=== PATIENT | female | born 2000 | race African-American/Black ===

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

== ENCOUNTER 2019-01-10 09:16 | Emergency (ER) | payer SELFPAY ==
[~2019-01-10] VITALS: Ht 157.5 cm; Wt 58.5 kg
[~2019-01-10 09:16] MED LIST: AMOX875T PO; IBUP-1060 PO
[2019-01-10 10:11] LABS: BILIRUBIN,URINE NEGATIVE (NEG); CLARITY,URINE CLOUDY; COLOR,URINE RED; NITRITE,URINE NEGATIVE (NEG); PH,URINE 5.5; PROTEIN,URINE 30 mg/dL (NEG-TRACE); UROBILINOGEN,URINE 0.2 mg/dL (0.2 mg/dL)
[2019-01-10 10:28] LABS: BACTERIA,URINE FEW /HPF (0-FEW); RBC,URINE TNTC /HPF (0-2); SQUAMOUS EPITHELIAL CELL,UR MOD /LPF
[2019-01-10] MEDS ORDERED: LIDOCAINE 2% TOPICAL JELLY 5GM TUBE. TP ONE (10:45)
[2019-01-10] MEDS ORDERED: LIDOCAINE 2% JELLY 6ML IN APPLICATOR. TP ONE (11:15)
[2019-01-10 11:30] VITALS: BP 114/69
--- NOTE | 2019-01-10 11:43 | PHYS DOC ---
Past Medical History Past Medical History: No Pertinent History Past Surgical History: No Surgical History Alcohol Use: None Drug Use: None Adult General Chief Complaint Chief Complaint: VAGINAL PROBLEM HPI HPI Patient is a 18 year old female with no significant medical history who presents today complaining of left labia swelling. Patient states 5 days ago she started having vaginal irritation, she states she has symptoms she had a yeast infection and used Monistat 3 days ago. She states she developed left labia swelling and worsening discharge, she states she went to [facility] yesterday, patient states she feels they did not treat her right, she states she feels they branded her as having STD and gave her a shot and pills to cover her for STDs but they did not evaluate her left labial which is swollen since she used Monistat. Review of Systems Review of Systems Constitutional: Denies fever or chills [] Eyes: Denies change in visual acuity, redness, or eye pain [] HENT: Denies nasal congestion or sore throat [] Respiratory: Denies cough or shortness of breath [] Cardiovascular: No additional information not addressed in HPI [] GI: Denies abdominal pain, nausea, vomiting, bloody stools or diarrhea [] Reports left labia swelling : Denies dysuria or hematuria [] Musculoskeletal: Denies back pain or joint pain [] Integument: Denies rash or skin lesions [] Neurologic: Denies headache, focal weakness or sensory changes [] All other systems were reviewed and found to be within normal limits, except as documented in this note. Current Medications Current Medications Current Medications Medications (Trade) Dose Ordered Sig/[facility] Start Time Stop Time Status Last Admin Dose Admin Lidocaine HCl (Glydo (Lidocaine) Jelly) 1 cristina 1X ONCE 01/10/19 11:15 01/10/19 11:16 DC 01/10/19 11:23 1 CRISTINA Lidocaine HCl (Xylocaine 2% Topical 5gm Tube) 1 cristina 1X ONCE 01/10/19 10:45 01/10/19 10:46 Cancel Allergies Allergies Allergies Coded Allergies Type Severity Reaction Last Updated Verified No Known Drug Allergies 02/11/17 No Physical Exam Physical Exam Constitutional: Well developed, well nourished, no acute distress, non-toxic appearance. [] HENT: Normocephalic, atraumatic, bilateral external ears normal, oropharynx moist, no oral exudates, nose normal. [] Eyes: PERRLA, EOMI, conjunctiva normal, no discharge. [] Neck: Normal range of motion, no tenderness, supple, no stridor. [] Cardiovascular:Heart rate regular rhythm, no murmur [] Lungs & Thorax: Bilateral breath sounds clear to auscultation [] Abdomen: Bowel sounds normal, soft, no tenderness, no masses, no pulsatile masses. [] Pelvic exam Left labia minora is swollen moderately, there is erythema throughout no obvious abscess noted slight swelling noted on the right right labial region with excoriation. Unable to do a full pelvic exam due to pain and swelling and pain Skin: Warm, dry, no erythema, no rash. [] Back: No tenderness, no CVA tenderness. [] Extremities: No tenderness, no cyanosis, no clubbing, ROM intact, no edema. [] Neurologic: Alert and oriented X 3, normal motor function, normal sensory function, no focal deficits noted. [] Psychologic: Affect normal, judgement normal, mood normal. [] Current Patient Data Vital Signs Vital Signs Date Time Temp Pulse Resp B/P (MAP) Pulse Ox O2 Delivery O2 Flow Rate FiO2 01/10/19 09:52 98.5 65 16 117/74 (88) 99 Room Air 98.5 Lab Values Laboratory Tests Test 01/10/19 09:37 01/10/19 10:05 Urine Collection Type Unknown Urine Color Red Urine Clarity Cloudy Urine pH 5.5 Urine Specific [place] 1.025 Urine Protein 30 mg/dL (NEG-TRACE) Urine Glucose (UA) Negative mg/dL (NEG) Urine Ketones (Stick) Trace mg/dL (NEG) Urine Blood Large (NEG) Urine Nitrite Negative (NEG) Urine Bilirubin Negative (NEG) Urine Urobilinogen Dipstick 0.2 mg/dL (0.2 mg/dL) Urine Leukocyte Esterase Moderate (NEG) Urine RBC Tntc /HPF (0-2) Urine WBC 5-10 /HPF (0-4) Urine Squamous Epithelial Cells Mod /LPF Urine Bacteria Few /HPF (0-FEW) Urine Mucus Marked /LPF POC Urine HCG, Qualitative Hcg negative (Negative) EKG EKG [] Radiology/Procedures Radiology/Procedures [] Course & Med Decision Making Course & Med Decision Making Pertinent Labs and Imaging studies reviewed. (See chart for details) This is a 18-year-old female patient presenting to the ED today with right labia swelling that began 3 days ago after she used Monistat. Patient was already evaluated at [facility], she was treated for STDs. On physical exam there is diffuse swelling on the left labia, no indication for a Bartholin cyst. There is a chance she could be having a local reaction to Monistat. Her urine was noted for UTI. She'll be discharged with prescription for Bactrim for UTI, prednisone for possibility of allergic reaction to Monistat , Benadryl, lidocaine cream to apply to the area, and prescription for Tylenol 3 as needed for pain. She already has fluconazole rx. Dragon Disclaimer Dragon Disclaimer This electronic medical record was generated, in whole or in part, using a voice recognition dictation system. Departure Departure Impression: Primary Impression: UTI (urinary tract infection) Additional Impression: Allergic reaction Disposition: HOME, SELF-CARE Condition: STABLE Referrals: LUPE PÉREZ (PCP) follow up in 1 week Patient Instructions: Drug Allergy, Urinary Tract Infection Additional Instructions: You were evaluated in the emergency room for labia swelling, there is a possibility you are having a local reaction to Monistat. We put you on medications, take them as prescribed. Follow-up with the provided ASSOCIATE PROGRAM MANAGER in one week if symptoms continue, ensure you fill rx for fluconazole you got yesterday Scripts Lidocaine/Prilocaine (LIDOCAINE-PRILOCAINE CREAM) 30 Gm Cream..g. 1 CRISTINA TP UD, #30 GM 1 Refill Prov: BERYL PHILLIPS APRN 01/10/19 Cetirizine Hcl (ZYRTEC) 10 Mg Tablet 1 TAB PO DAILY, #20 TAB 2 Refills Prov: BERYL PHILLIPS FINISHER SCREWDOWN 01/10/19 Sulfamethoxazole/Trimethoprim (BACTRIM DS TABLET) 1 Each Tablet 1 TAB PO BID, #6 TAB Prov: BERYL PHILLIPS APRN 01/10/19 Prednisone (PREDNISONE) 50 Mg Tablet 1 TAB PO DAILY, #5 TAB Prov: MUTUNGABERYL FINISHER SCREWDOWN 01/10/19 Problem Qualifiers Primary Impression: UTI (urinary tract infection) Urinary tract infection type: site unspecified Hematuria presence: without hematuria Qualified Codes: N39.0 - Urinary tract infection, site not specified Additional Impression: Allergic reaction Encounter type: initial encounter Qualified Codes: T78.40XA - Allergy, unspecified, initial encounter BERYL PHILLIPS APRN Jan 10, 2019 11:43
[2019-01-10] MEDS ORDERED: CETI10TA22 PO (11:47)
[2019-01-10] MEDS ORDERED: SULF1TAB24 PO (11:47)
[2019-01-10] MEDS ORDERED: LIDO30CR TP (11:47)
[2019-01-10] MEDS ORDERED: PRED50TA PO (11:47)
[2019-01-12 22:10] LABS: HERPES SIMPLEX TYPE 1 Negative (Negative); HERPES SIMPLEX TYPE 2 Negative (Negative)
== END 2019-01-10 12:00 | disposition home or self-care (01) ==
LOC: ER 09:16
DX: N39.0 Urinary tract infection, site not specified (principal); T78.40XA Allergy, unspecified, initial encounter; X58.XXXA Exposure to other specified factors, initial encounter
CPT/HCPCS: 36415; 81001; 81025; 87086; 87529; 99283

== ENCOUNTER 2019-07-03 09:32 | Emergency (ER) | payer SELFPAY ==
[~2019-07-03] VITALS: Ht 157.5 cm; Wt 58.5 kg
[~2019-07-03 09:32] MED LIST changes: +CETI10TA22 PO; +LIDO30CR TP; +PRED50TA PO; +SULF1TAB24 PO
--- NOTE | 2019-07-03 11:11 | PHYS DOC ---
Past Medical History Past Medical History: No Pertinent History (AYALA POSADA APRN) Past Surgical History: No Surgical History (AYALA POSADA APRN) Alcohol Use: None Drug Use: None (AYALA POSADA APRN) Adult General Chief Complaint Chief Complaint: VAGINAL PROBLEM HPI HPI Patient is a 19 year old AA female, accompanied by her significant other, who presents to the emergency Department today with complaints of an irregular period. Patient states she began to have her menstrual cycle on 06/24/19 but has continued to have light spotting for the last week. She also complains of lower abdominal cramps, currently she rates the discomfort a 3/10 on the pain scale. She denies any alleviating or exacerbating factors. Pt states she does not currently use any method of contraception. ROS PT denies any fever, cough, sore throat, nausea, vomiting, abdominal pain, back pain, or diarrhea. She reports pelvic cramps with light vaginal bleeding. She reports taking 2 home tests that had faint positive results this week. She denies any irregular vaginal discharge prior to the onset of bleeding, vaginal odor, or concerns of an STI. She denies any back pain, dysuria, foul smelling urine, or hematuria. She reports a slight increase in urinary frequency. PT states she has never been before. All other ROS is neg unless otherwise noted in HPI. (AYALA POSADA APRN) Review of Systems Review of Systems See Above (AYALA POSADA APRN) Allergies Allergies Allergies Coded Allergies Type Severity Reaction Last Updated Verified No Known Drug Allergies 02/11/17 No (JANE JAIMES MD) Physical Exam Physical Exam See Above Constitutional: Well developed, well nourished, no acute distress, non-toxic appearance. [] HENT: Normocephalic, atraumatic, bilateral external ears normal, oropharynx moist, no oral exudates, nose normal. [] Eyes: PERRLA, EOMI, conjunctiva normal, no discharge. [] Neck: Normal range of motion, no tenderness, supple, no stridor. [] Cardiovascular:Heart rate regular rhythm, no murmur [] Lungs & Thorax: Bilateral breath sounds clear to auscultation [] Abdomen: Bowel sounds normal, soft, no tenderness, no masses, no pulsatile masses. [] Skin: Warm, dry, no erythema, no rash. [] Back: No tenderness, no CVA tenderness. [] Extremities: No cyanosis, ROM intact, no edema. [] Neurologic: Alert and oriented X 3, no focal deficits noted. [] Psychologic: Affect normal, judgement normal, mood normal. [] (AAYLA POSADA APRN) Current Patient Data Vital Signs Vital Signs Date Time Temp Pulse Resp B/P (MAP) Pulse Ox O2 Delivery O2 Flow Rate FiO2 07/03/19 14:02 78 20 122/61 (81) 96 Room Air 07/03/19 09:50 98.1 98.1 (JANE JAIMES MD) Lab Values Laboratory Tests Test 07/03/19 10:23 07/03/19 11:34 POC Urine HCG, Qualitative Hcg positive (Negative) Maternal Serum HCG Beta Subunit 11 mIU/mL (0-5) H (JANE JAIMES MD) EKG EKG [] (AYALA POSADA APRN) Radiology/Procedures Radiology/Procedures PROCEDURE: OB <14 WKS W/TV Obstetrical ultrasound HISTORY: Spotting. Vaginal bleeding in early . Transabdominal scan: Uterus measures 5.6 x 2.8 x 2.8 cm. No obvious gestational sac. Ovaries not seen. Endovaginal scan: Endometrial stripe measures 8 mm. Endometrium appears homogeneous. No evidence of gestational sac, yolk sac or pole. Right ovary measures 34 x 18 x 19 mm with small follicles and intact blood supply. Left ovary measures 38 x 21 x 22 mm and contains a 21 mm cyst and intact blood flow. No free fluid is identified. IMPRESSION: 1. No sonographic visualization of gestational sac or pole. This could represent an early normal , before the is apparent on ultrasound. Recommend correlation with quantitative beta hCG and close short-term follow-up ultrasound. 2. Left ovarian cyst.[] (AYALA POSADA APRN) Course & Med Decision Making Course & Med Decision Making Pertinent Labs and Imaging studies reviewed. (See chart for details) [] (AYALA POSADA APRN) Course & Med Decision Making Staff Physician Addendum: I was working in the ER during the course of this patient's visit. I was available for consultation as needed, but I was not directly involved in the care of this patient. (JANE JAIMES MD) Dragon Disclaimer Dragon Disclaimer This electronic medical record was generated, in whole or in part, using a voice recognition dictation system. (AYALA POSADA APRN) Departure Departure Impression: Primary Impression: Vaginal bleeding affecting early Disposition: HOME, SELF-CARE Condition: STABLE Referrals: MEGHANA POWELL MD Patient Instructions: Vaginal Bleeding During , First Trimester Additional Instructions: According to your last menstrual cycle of 05/27/19 your estimated due date would be 03/02/20. Discontinue use of ibuprofen, you may only take Tylenol as needed for pain/fever during . Drink plenty of water. Follow up with the listed OBGyn, call in the morning to schedule an appointment to recheck your Hcg levels. You were given a dose of rhogham in the ER as your blood type was O negative. AYALA POSADA APRN Jul 03, 2019 11:11 JANE JAIMES MD Jul 07, 2019 08:39
--- NOTE | 2019-07-03 13:20 | RAD ---
Obstetrical ultrasound HISTORY: Spotting. Vaginal bleeding in early . Transabdominal scan: Uterus measures 5.6 x 2.8 x 2.8 cm. No obvious gestational sac. Ovaries not seen. Endovaginal scan: Endometrial stripe measures 8 mm. Endometrium appears homogeneous. No evidence of gestational sac, yolk sac or pole. Right ovary measures 34 x 18 x 19 mm with small follicles and intact blood supply. Left ovary measures 38 x 21 x 22 mm and contains a 21 mm cyst and intact blood flow. No free fluid is identified. IMPRESSION: 1. No sonographic visualization of gestational sac or pole. This could represent an early normal , before the is apparent on ultrasound. Recommend correlation with quantitative beta hCG and close short-term follow-up ultrasound. 2. Left ovarian cyst. Electronically signed by: Irving Mallory MD (07/03/2019 1:17 PM) [facility]
[2019-07-03 14:02] VITALS: BP 122/61
== END 2019-07-03 14:45 | disposition home or self-care (01) ==
LOC: ER 09:32
DX: O46.91 Antepartum hemorrhage, unspecified, first trimester (principal); O34.81 Maternal care for other abnormalities of pelvic organs, first trimester; N83.202 Unspecified ovarian cyst, left side; Z3A.00 Weeks of gestation of pregnancy not specified
CPT/HCPCS: 36415; 36430; 76801; 76817; 81025; 84702; 86850; 86900; 86901; 99285; J2791